=== PATIENT | female | born 1960 | race African-American/Black ===

== ENCOUNTER 2018-10-10 06:36 | Inpatient (IN) | payer SELFPAY ==
[~2018-10-10] VITALS: Ht 157.5 cm; Wt 115.0 kg
[2018-10-10] MEDS ORDERED: cloNIDine HCL 0.1 MG TAB ONE ×2 (07:40→15:12)
[2018-10-10] MEDS ORDERED: cloNIDine HCL 0.1 MG TAB PO ONE ×2 (10:30→15:15)
[2018-10-10 12:19] LABS: Basophils # (auto) 0 uL; Eosinophils # (auto) 0.2 uL; Hemoglobin 13.7 g/dL (12.2-16.2); Lymphocytes # (auto) 2.9 uL; Mean Corpuscular Volume 76.9 fL (80.0-100.0); Monocytes # (auto) 0.4 uL; Neutrophils # (auto) 3.8 uL
[2018-10-10 12:27] LABS: Basophils % (auto) 0.7 % (0.0-2.0); Eosinophils % (auto) 2.3 % (0.0-7.0); Hematocrit 42.6 % (36.0-46.0); Lymphocytes % (auto) 39.1 % (10.0-50.0); Mean Corpuscular Hemoglobin 24.7 pg (28.0-32.0); Mean Corpuscular Hgb Conc. 32.1 g/dL (32.0-36.0); Monocytes % (auto) 5.9 % (0.0-12.0); Nucleated Red Blood Cells % 0.2 %; Platelet Count (auto) 291 10^3/uL (140-450); Red Blood Cells 5.54 10^6/uL (4.0-5.20); Red Cell Distribution Width 16.6 % (11.8-14.3); White Blood Cell 7.4 10^3/uL (4.4-10.8)
[2018-10-10 12:31] LABS: Potassium 4.3 mmol/L (3.5-5.1)
[2018-10-10 12:39] LABS: BUN/Creatinine Ratio 8.2; Bilirubin, Total 0.5 mg/dL (0.2-1.0); Calcium 8.9 mg/dL (8.5-10.1); Total Protein 8.3 g/dL (6.4-8.2)
[2018-10-10] MEDS ORDERED: HYDROcodone-ACET 5/325MG TAB PO PRN (14:15)
[2018-10-10] MEDS ORDERED: TEMAZEPAM 15 MG CAP PO PRN (14:15)
[2018-10-10] MEDS ORDERED: LACTULOSE 20Gm/30ML SOLN PO PRN ×2 (14:15)
[2018-10-10] MEDS ORDERED: LORazepam 0.5 MG TAB PO PRN (14:15)
[2018-10-10] MEDS ORDERED: DEXTROSE (50%) 50ML SYRG IV PRN (14:15)
[2018-10-10] MEDS ORDERED: MORPHINE SULFATE 4 MG/ML SYR/VIAL IV PRN ×2 (14:15)
[2018-10-10] MEDS ORDERED: NITROGLYCERIN 0.4 MG SL TAB SL PRN (14:15)
[2018-10-10] MEDS ORDERED: PROMETHAZINE HCL 25 MG/ML 1ML IV PRN (14:15)
--- NOTE | 2018-10-10 15:37 | NUR ---
MS admit from ER [facility] admitted to tele/MS after SBAR received. Patient oriented to BAYRON MIMS, primary RN, unit, room, bed, and unit policies regarding patient care and visiting hours. Patient weighed by bedscale and encouraged to call if they need something. All questions and concerns addressed, patient verbalized understanding.
[2018-10-10] MEDS ORDERED: ATEN100T PO (15:53)
[2018-10-10] MEDS ORDERED: CLON0.1T PO (15:53)
[2018-10-10] MEDS ORDERED: ZOLP-158 PO (15:53)
[2018-10-10] MEDS ORDERED: BENA40TA7 PO (15:53)
[2018-10-10] MEDS ORDERED: HYDR-4683 PO (15:54)
[2018-10-10] MEDS ORDERED: HCTZ 25 MG TAB PO ONE (16:00)
[2018-10-10] MEDS ORDERED: cloNIDine HCL 0.1 MG TAB PO PRN (16:00)
[2018-10-10] MEDS ORDERED: METOPROLOL TARTRATE 50 MG TAB PO ONE (16:00)
[2018-10-10] MEDS ORDERED: amLODIPine BESYLATE 5 MG TAB PO ONE (16:00)
[2018-10-10] MEDS ORDERED: BENAZEPRIL HCL 10 MG TAB PO ONE (16:00)
[2018-10-10] MEDS: ACETAMINOPHEN 500 MG TAB PO PRN (17:11)
[2018-10-10 17:24] VITALS: BP 160/88
[2018-10-10] MEDS: ACCU-CHEK COMFORT CURVE STRIP VI SCH ×2 (18:01→21:55)
--- NOTE | 2018-10-10 19:10 | NUR ---
Opening Shift Note Assumed care of patient, awake and alert. No S/S of distress/SOB or pain. Instructed on POC and to call for assistance PRN, will continue to monitor for changes Q1hr and PRN.
--- NOTE | 2018-10-10 19:15 | NUR ---
CLOSING NOTE PATIENT RESTING IN BED, NO SIGNS OF DISTRESS NOTED.
[2018-10-10 21:54] VITALS: BP 123/63
[2018-10-10] MEDS: SODIUM CHLOR 0.9% PF (SALINE LOCK) 10ML VIAL/SYR IV SCH (21:54)
[2018-10-10] MEDS: METOPROLOL TARTRATE 50 MG TAB PO SCH (21:54)
[2018-10-10] MEDS ORDERED: ATORVASTATIN 20 MG TAB PO SCH (22:00)
[2018-10-11 05:00] VITALS: BP 140/73
[2018-10-11] MEDS: SODIUM CHLOR 0.9% PF (SALINE LOCK) 10ML VIAL/SYR IV SCH ×2 (05:48→15:35)
[2018-10-11] MEDS: ACCU-CHEK COMFORT CURVE STRIP VI SCH ×2 (06:24→11:30)
--- NOTE | 2018-10-11 07:29 | NUR ---
Opening Shift Note Assumed care of patient, awake and alert. No S/S of distress/SOB or pain. Instructed on POC and to call for assist PRN, will continue to monitor for changes Q1hr and PRN.
[2018-10-11 09:00] VITALS: BP 165/73
[2018-10-11 09:02] LABS: Cholesterol 196 mg/dL (< 200); Triglycerides 105 mg/dL (< 150)
[2018-10-11 09:04] LABS: HDL Cholesterol 43 mg/dL (40-59); LDL Cholesterol 139 mg/dL (< 100)
[2018-10-11 09:49] LABS: Alcohol, Urine < 3.0 mg/dL (0-5); Amphetamine Screen, Urine NEGATIVE (NEGATIVE); Barbiturate Scree,Urine NEGATIVE (NEGATIVE); Benzodiazephine Screen, Urine NEGATIVE (NEGATIVE); Cannabinoid Screen, Urine POSITIVE (NEGATIVE); Cocaine Screen, Urine NEGATIVE (NEGATIVE); Opiate Scree,Urine NEGATIVE (NEGATIVE); Phencyclidine Screen, Urine NEGATIVE (NEGATIVE)
[2018-10-11] MEDS ORDERED: HCTZ 25 MG TAB PO SCH (10:00)
[2018-10-11] MEDS ORDERED: ASPirin 81 mg TAB PO SCH (10:00)
[2018-10-11] MEDS ORDERED: PANTOPRAZOLE 40 MG TAB PO SCH (10:00)
[2018-10-11] MEDS ORDERED: ENOXAPARIN SOD 40 MG/0.4 ML SYRINGE SC SCH (10:00)
[2018-10-11] MEDS ORDERED: BENAZEPRIL HCL 10 MG TAB PO SCH (10:00)
[2018-10-11] MEDS ORDERED: amLODIPine BESYLATE 5 MG TAB PO SCH (10:00)
[2018-10-11] MEDS: METOPROLOL TARTRATE 50 MG TAB PO SCH (10:36)
--- NOTE | 2018-10-11 11:28 | NUR ---
Patient removed her own IV. Patient states " I don't want to have IV, I don't need it". Educated patient that she has to have IV access while she is on the hospital for emergency purposes, but still patient refused to have IV. Will inform hospitalist.
[2018-10-11] MEDS: ACETAMINOPHEN 500 MG TAB PO PRN (11:47)
--- NOTE | 2018-10-11 12:10 | NUR ---
Patient is walking around the unit. Refused to have the tele box on.
--- NOTE | 2018-10-11 12:30 | NUR ---
Patient is back in her room, refused to have the telebox on. Informed [facility].
--- NOTE | 2018-10-11 12:35 | NUR ---
Patient states she want to go downstairs. Patient states she will signs AMA to leave the unit.
[2018-10-11 13:00] VITALS: BP 141/74
--- NOTE | 2018-10-11 15:25 | NUR ---
Discharge instructions given as ordered. Encourage to follow up with PMD as instructed. All questions and concerns addressed. Patient verbalized understanding. Medication reconciliation form completed and copy given to patient. IV removed with catheter intact, pressure dressing applied. Telemetry unit returned to [facility].
--- NOTE | 2018-10-11 16:00 | NUR ---
Patient taken to vehicle via wheelchair with all personal belongings, accompanied by staff and family member. No distress noted at time of departure.
--- NOTE | 2018-10-11 16:39 | NUR ---
Contacted patient re: she left her weigher and charger in the room and we kept it in station. Left a message.
[2018-10-12 09:52] LABS: Folate (Folic Acid) 23.12 ng/mL (5.38-24)
== END 2018-10-11 16:29 | disposition home or self-care (01) | DRG 305 ==
LOC: EDBD 06:36 → ER 06:36 → TELE 14:11 → TELE-EAST 15:42
PROVIDERS: ADMIT Internal Medicine; ATTEND Internal Medicine
DX: I16.0 Hypertensive urgency (principal); Z68.42 Body mass index [BMI] 45.0-49.9, adult; R73.9 Hyperglycemia, unspecified; I70.90 Unspecified atherosclerosis; Z86.73 Personal history of transient ischemic attack (TIA), and cerebral infarction without residual deficits; Z82.49 Family history of ischemic heart disease and other diseases of the circulatory system; Z79.899 Other long term (current) drug therapy; M79.7 Fibromyalgia; I10 Essential (primary) hypertension; G89.29 Other chronic pain; E66.01 Morbid (severe) obesity due to excess calories; G47.00 Insomnia, unspecified
CPT/HCPCS: 36415; 70450; 71045; 71046; 80053; 80061; 80307; 82550; 82607; 82746; 82962; 83036; 84443; 85025; 85652; 93005; 93306; 93886; G0378

== ENCOUNTER 2019-01-15 08:35 | Inpatient (IN) | payer OTHER, MEDICAID ==
[~2019-01-15] VITALS: Ht 157.5 cm; Wt 91.8 kg
[~2019-01-15 08:35] MED LIST: ATEN100T PO; BENA40TA7 PO; CLON0.1T PO; HYDR-4683 PO; ZOLP-158 PO
[2019-01-15] MEDS ORDERED: DILTIAZEM HCL 25 MG/5 ML VIAL IV ONE (09:30)
[2019-01-15] MEDS ORDERED: LORazepam 2MG/ML-1ML VIAL IV ONE (09:45)
[2019-01-15] MEDS ORDERED: AMIODARONE HCL 150 MG in D5W 5% 100 ML IV ONE (09:45)
[2019-01-15 09:52] LABS: Basophils # (auto) 0.1 uL; Basophils % (auto) 0.9 % (0.0-2.0); Eosinophils # (auto) 0.1 uL; Hematocrit 48.2 % (36.0-46.0); Hemoglobin 14.9 g/dL (12.2-16.2); Lymphocytes # (auto) 3.9 uL; Mean Corpuscular Hgb Conc. 30.9 g/dL (32.0-36.0); Mean Corpuscular Volume 77.8 fL (80.0-100.0); Monocytes # (auto) 0.7 uL; Monocytes % (auto) 5.9 % (0.0-12.0); Neutrophils # (auto) 6.3 uL; Neutrophils % (auto) 57.2 % (37.0-80.0); Nucleated Red Blood Cells % 0.6 %; Platelet Count (auto) 283 10^3/uL (140-450); Red Cell Distribution Width 16.8 % (11.8-14.3)
[2019-01-15] MEDS ORDERED: AMIODARONE HCL 900 MG in DEXTROSE 500 ML IV SCH (09:52)
[2019-01-15 09:58] LABS: Albumin 4.1 g/dL (3.4-5.0); Calcium 9.3 mg/dL (8.5-10.1); Potassium 3.9 mmol/L (3.5-5.1); Urine Bacteria NONE SEEN /hpf (None Seen); Urine Blood Negative /uL (Negative); Urine Specific Gravity 1.015 (1.001-1.035); Urine WBC <1 /hpf (0 - 5)
[2019-01-15 10:00] LABS: Bilirubin, Total 0.5 mg/dL (0.2-1.0); Total Protein 9.1 g/dL (6.4-8.2)
[2019-01-15 10:02] LABS: Magnesium 2.5 mg/dL (1.6-2.6)
[2019-01-15] MEDS ORDERED: METOPROLOL TARTRATE 1MG/1ML-5ML VIAL IV ONE ×2 (10:13→10:15)
[2019-01-15] MEDS ORDERED: PROMETHAZINE HCL 25 MG/ML 1ML IV PRN (10:15)
[2019-01-15] MEDS ORDERED: LORazepam 0.5 MG TAB PO PRN (10:15)
[2019-01-15] MEDS ORDERED: ACETAMINOPHEN 500 MG TAB PO PRN (10:15)
[2019-01-15] MEDS ORDERED: METOPROLOL TARTRATE 25 MG TAB PO ONE (10:15)
[2019-01-15] MEDS ORDERED: MORPHINE SULF INJ 2 MG/ML SYRINGE 1ML IV PRN (10:15)
[2019-01-15] MEDS ORDERED: traMADol HCL 50 MG TAB PO PRN (10:15)
[2019-01-15] MEDS ORDERED: LACTULOSE 20Gm/30ML SOLN PO PRN (10:15)
[2019-01-15] MEDS ORDERED: NITROGLYCERIN 0.4 MG SL TAB SL PRN (10:15)
[2019-01-15] MEDS: SODIUM CHLORIDE 0.9% 1,000 ML IV SCH ×2 (10:22→22:28)
[2019-01-15] MEDS: ENOXAPARIN SOD 100 MG/1 ML SYRINGE SC SCH ×2 (10:22→22:00)
[2019-01-15 11:19] LABS: Alcohol, Urine < 3.0 mg/dL (0-5); Amphetamine Screen, Urine NEGATIVE (NEGATIVE); Barbiturate Scree,Urine NEGATIVE (NEGATIVE); Benzodiazephine Screen, Urine NEGATIVE (NEGATIVE); Cannabinoid Screen, Urine POSITIVE (NEGATIVE); Cocaine Screen, Urine NEGATIVE (NEGATIVE); Opiate Scree,Urine NEGATIVE (NEGATIVE); Phencyclidine Screen, Urine NEGATIVE (NEGATIVE)
[2019-01-15] MEDS: ALBUTEROL SULF 2.5 MG/0.5ML(0.5%) NEB SOLN NEB PRN (17:51)
--- NOTE | 2019-01-15 17:51 | NUR ---
Respiratory note: AT BEDSIDE IN ER BED 18 TO ADMINISTER PRN MED NEB TX. PT TOLERATING WELL VIA MASK. BS ARE FINE EXP COURSE WHEEZES T/O. WILL CONTINUE TO MONITOR. POX 98% ON RA.
[2019-01-15] MEDS: METOPROLOL TARTRATE 25 MG TAB PO SCH (22:28)
[2019-01-15] MEDS: TEMAZEPAM 15 MG CAP PO PRN (22:29)
--- NOTE | 2019-01-15 23:20 | NUR ---
Admit to [facility] admitted to [facility] via gurney on surveillance system monitor. Patient transferred to bed, connected to unit monitoring and oxygen, and weighed by bed scale. Patient oriented to Coral encinas RN, unit, room, bed, and unit policies regarding patient care and visiting hours. All questions and concerns addressed, patient verbalized understanding. NOTE: ALERT AND ORIENTED X4. NO SOB OR PAIN NOTED. ROOM AIR. AMIO DRIP AT 1. SR 80S SKIN INTACT.
[2019-01-16] VITALS: BP 129/99
[2019-01-16] MEDS ORDERED: QUET50TA PO (00:08)
[2019-01-16] MEDS ORDERED: AMITR PO (00:08)
[2019-01-16] MEDS ORDERED: METO-169 PO (00:09)
[2019-01-16] MEDS ORDERED: AMLO5TAB13 PO (00:09)
[2019-01-16] MEDS ORDERED: AMIODARONE HCL 900 MG IV ONE (01:44)
[2019-01-16 04:00] VITALS: BP 136/75
--- NOTE | 2019-01-16 05:00 | NUR ---
MORNING HYGIENE CARE FULL LINEN CHANGED PERFORMED. PATIENT REFUSED BATH FOR NOW. SAID SHE WILL DO IT LATER ON IN THE DAY. SUPPLIES LEFT AT BEDSIDE.
[2019-01-16 05:57] LABS: Cholesterol 203 mg/dL (< 200); HDL Cholesterol 43 mg/dL (40-59); LDL Cholesterol 142 mg/dL (< 100); Triglycerides 136 mg/dL (< 150)
--- NOTE | 2019-01-16 07:30 | NUR ---
END OF SHIFT PATIENT IS QUIETLY LAYING IN BED SLEEPING. NO SOB, DISTRESS OR PAIN NOTED. ON AMIO DRIP AT 0.5MG MIN. CURRENTLY SINUS RHYTHM. REPORT GIVEN AND CARE ENDORSED TO MATTHIAS POLLARD.
[2019-01-16 08:00] VITALS: BP 118/95
--- NOTE | 2019-01-16 08:05 | NUR ---
Opening Shift Note Assumed care of patient, awake and alert. Patient A&Ox4. Patient states she was woken up by her palpitations. Heart rate was 150-160 BPM for approximately 1 minute. Patient now A-fib at 90-100 BPM. Patient denies any pain at this time. Patient IV to the left hand 22G painful and swollen. IV D/C catheter intact, pressure dressing placed. IV left forearm 20G running Amiodarone 0.5mg/hr and NS at 75ml/hr, IV patent, clean, dry, and intact. Patient on room air saturation at 98%. Patient ambulatory walked to bathroom independently no assistance needed. Skin intact. No S/S of distress/SOB or pain at this time. Bed locked and in the lowest position, side rails up x2, call light within reach. Instructed on POC and to call for assistance. Will continue to monitor.
--- NOTE | 2019-01-16 08:35 | NUR ---
Patient sitting up in bed eating breakfast independently. Will continue to monitor.
--- NOTE | 2019-01-16 09:00 | NUR ---
Patient complaining that her IV left forearm 20G painful and swollen. IV infiltrated. IV catheter intact upon removal, pressure dressing placed. New IV to be placed.
--- NOTE | 2019-01-16 09:30 | NUR ---
Dr. English at [facility]. Addendum: 01/16/19 at 1655 by Leslie Renner RN Wrong time.
--- NOTE | 2019-01-16 09:35 | NUR ---
New IV right forearm 22G, Patent, clean, dry, and intact. Running Amiodarone and fluids. Will continue to monitor.
[2019-01-16] MEDS ORDERED: ASPirin 81 mg TAB PO SCH (10:00)
--- NOTE | 2019-01-16 10:00 | NUR ---
Medication dosages, usages, and side effects explained to patient. Patient verbalized understanding. Will continue to monitor.
[2019-01-16] MEDS: METOPROLOL TARTRATE 25 MG TAB PO SCH (10:36)
[2019-01-16] MEDS ORDERED: METOPROLOL TARTRATE 25 MG TAB PO ONE ×2 (10:45→11:15)
[2019-01-16] MEDS ORDERED: APIXABAN 5 MG TAB PO ONE (10:45)
[2019-01-16] MEDS ORDERED: ASPirin 81 mg TAB PO ONE (10:45)
--- NOTE | 2019-01-16 10:50 | NUR ---
Dr. English at bedside. New orders for Amiodarone bolus, Metoprolol 50mg BID. will continue to monitor.
[2019-01-16] MEDS ORDERED: AMIODARONE HCL 150 MG in D5W 5% 100 ML IV ONE (11:15)
--- NOTE | 2019-01-16 11:39 | NUR ---
Patient sitting up watching TV. Will continue to monitor.
[2019-01-16 11:44] VITALS: BP 126/105
--- NOTE | 2019-01-16 12:36 | NUR ---
Respiratory note: ROUTINE PRN TX CHECK. HR 82, RR 18, POX 94% ON RA, BREATH SOUNDS ARE CLEAR. NO SOB OR DISTRESS NOTED. PT WAS NOTIFY TO HAVE RT PAGE FOR MN TX.
--- NOTE | 2019-01-16 13:30 | NUR ---
Patient sitting up in bed in bed eating lunch. Will continue to monitor.
--- NOTE | 2019-01-16 15:30 | NUR ---
Dr. Vanessa at bedside. New orders: D/C Metoprolol, Amiodarone PO 200mg BID, D/C Amiodarone drip 6 hours after first PO dose of Amiodarone, and Cardizem ER 240mg daily.
[2019-01-16 15:48] VITALS: BP 134/81
--- NOTE | 2019-01-16 17:15 | NUR ---
Dr. Carrizales at bedside.
--- NOTE | 2019-01-16 17:30 | NUR ---
Respiratory note: NO SVN INDICATED AT THIS TIME. PT IN NO DISTRESS. CLEAR BILATERAL BREATH SOUNDS. PT AWARE TO NOTIFY NURSE IF SOB OCCURS.
[2019-01-16] MEDS ORDERED: AMIODARONE HCL 200 MG TAB PO SCH (18:25)
--- NOTE | 2019-01-16 18:30 | NUR ---
End of shift note: Patient resting at this time. Patient IV right forearm 22G running Amiodarone 0.5mg/hr and NS at 75ml/hr, IV patent, clean, dry, and intact. Patient on room air saturation at 98%. No S/S of distress/SOB or pain at this time. Bed locked and in the lowest position, side rails up x2, call light within reach. Instructed on POC and to call for assistance. Will continue to monitor. Report to be given to hourly shift RN.
--- NOTE | 2019-01-16 19:15 | NUR ---
OPENING SHIFT RECEIVED REPORT FROM DAY SHIFT RN. ASSUMED CARE OF PATIENT. PATIENT IN BED WATCHING TV WITH NO SIGNS OR SYMPTOMS OF SOB, PAIN OR DISTRESS. CURRENTLY ON ROOM AIR, 02 SAT - 97%. UPDATED PATIENT ON PLAN OF CARE. BED IN LOWEST POSITION, SIDE RAILS UP X2, CALL LIGHT WITHIN REACH. WILL CONTINUE TO MONITOR.
[2019-01-16 19:50] VITALS: BP 146/83
--- NOTE | 2019-01-16 21:15 | NUR ---
PM CARE PATIENT PERFORMED NIGHT CARE, CLEANSED BODY WITH CHG WIPES AND USED WASH CLOTHS TO THE FACE. FULL LINEN CHANGE AND GOWN CHANGED. PATIENT TOLERATED WELL. REPOSITIONED FOR COMFORT. PATIENT CURRENTLY ON ROOM AIR,02 SAT -98%. BED IN LOWEST POSITION, SIDE RAILS UP X2, CALL LIGHT WITHIN REACH. WILL CONTINUE TO MONITOR.
[2019-01-16] MEDS: TEMAZEPAM 15 MG CAP PO PRN (21:38)
[2019-01-16] MEDS ORDERED: METOPROLOL TARTRATE 50 MG TAB PO SCH (22:00)
[2019-01-16] MEDS ORDERED: APIXABAN 5 MG TAB PO SCH (22:00)
--- NOTE | 2019-01-16 22:15 | NUR ---
PATIENT PLACED ON BREATHING TREATMENT, RT AT BEDSIDE. PATIENT TOLERATING WELL. WILL CONTINUE TO MONITOR.
[2019-01-16] MEDS: ALBUTEROL SULF 2.5 MG/0.5ML(0.5%) NEB SOLN NEB PRN (22:20)
[2019-01-17] VITALS: BP 115/62
--- NOTE | 2019-01-17 00:45 | NUR ---
DC IV RIGHT FOREARM IV INFILTRATED. IV REMOVED, CATHETER INTACT.
--- NOTE | 2019-01-17 00:50 | NUR ---
IV INSERTION INSERTED RIGHT FOREARM IV 22G - INTACT AND FLUSHES WELL.
--- NOTE | 2019-01-17 01:15 | NUR ---
NOTICED PATIENT IS IRRITABLE DUE TO BEING WOKEN UP FOR IV INSERTION. PATIENT STATES, " I AM UNABLE TO GO BACK TO SLEEP, I WANT TO GO HOME AND SLEEP IN MY OWN BED. IM TIRED OF BEING HERE."
--- NOTE | 2019-01-17 01:30 | NUR ---
PAGEGonzalez HOSPITALIST IN REGARDS TO PATIENT REQUESTING TO LEAVE AMA. RECOMMENDED BENADRYL FOR SLEEP. PATIENT REFUSED AND INSISTED ON GOING HOME. INFORMED PATIENT ABOUT CURRENT DIAGNOSIS - AFIB.
--- NOTE | 2019-01-17 01:50 | NUR ---
REMOVED RIGHT FOREARM IV, CATHETER INTACT. PATIENT TOLERATED WELL.
--- NOTE | 2019-01-17 01:55 | NUR ---
PATIENT SIGNED AMA PAPERS. PATIENT ARRANGED A TAXI FOR PICKUP. PATIENT PACKED ALL BELONGINGS AT BEDSIDE. PAGED SECURITY FOR ESCORT.
--- NOTE | 2019-01-17 02:10 | NUR ---
PATIENT LEFT AMA AND WAS ESCORTED BY SECURITY TO THE ER ENTRANCE.
[2019-01-17] MEDS ORDERED: DILTIAZEM HCL 120MG ER CAP PO SCH (10:00)
== END 2019-01-17 02:09 | disposition left against medical advice (07) | DRG 309 ==
LOC: ER 08:35 → TELE 10:07 → DOU IN ICU 23:18
PROVIDERS: ADMIT Internal Medicine; ATTEND Internal Medicine
DX: I48.91 Unspecified atrial fibrillation (principal); D68.69 Other thrombophilia; I11.0 Hypertensive heart disease with heart failure; M79.7 Fibromyalgia; I25.10 Atherosclerotic heart disease of native coronary artery without angina pectoris; E66.01 Morbid (severe) obesity due to excess calories; F12.90 Cannabis use, unspecified, uncomplicated; F17.210 Nicotine dependence, cigarettes, uncomplicated; I50.9 Heart failure, unspecified; G89.29 Other chronic pain; M54.5 Low back pain; I48.92 Unspecified atrial flutter; J44.9 Chronic obstructive pulmonary disease, unspecified; Z68.37 Body mass index [BMI] 37.0-37.9, adult; Z86.73 Personal history of transient ischemic attack (TIA), and cerebral infarction without residual deficits; Z82.5 Family history of asthma and other chronic lower respiratory diseases; Z82.49 Family history of ischemic heart disease and other diseases of the circulatory system; Z88.5 Allergy status to narcotic agent; Z90.49 Acquired absence of other specified parts of digestive tract; Z53.21 Procedure and treatment not carried out due to patient leaving prior to being seen by health care provider
CPT/HCPCS: 36415; 71045; 80053; 80061; 80307; 81001; 83735; 83880; 84443; 84484; 85025; 85379; 85652; 86141; 93005; 93306; 94640; 94761; 96361; 96365; 96367; 96375; 99291; G0378; J7060

== ENCOUNTER 2019-09-16 15:05 | Emergency (ER) | payer OTHER, MEDICAID ==
[~2019-09-16] VITALS: Ht 162.6 cm; Wt 113.4 kg
[~2019-09-16 15:05] MED LIST changes: +AMITR PO; +AMLO5TAB15 PO; -ATEN100T PO; -BENA40TA7 PO; -CLON0.1T PO; -HYDR-4683 PO; +HYDR-4833 PO; +METO-169 PO; +QUET50TA PO
[2019-09-16 16:57] LABS: Basophils # (auto) 0.1 uL; Eosinophils # (auto) 0.2 uL; Hematocrit 38.4 % (36.0-46.0); Mean Corpuscular Hemoglobin 24.4 pg (28.0-32.0); Monocytes # (auto) 0.4 uL
[2019-09-16 16:59] LABS: Basophils % (auto) 1.3 % (0.0-2.0); Eosinophils % (auto) 2.4 % (0.0-7.0); Hemoglobin 12.3 g/dL (12.2-16.2); Lymphocytes # (auto) 2.6 uL; Lymphocytes % (auto) 37.7 % (10.0-50.0); Mean Corpuscular Hgb Conc. 32.1 g/dL (32.0-36.0); Mean Corpuscular Volume 76.2 fL (80.0-100.0); Monocytes % (auto) 5.2 % (0.0-12.0); Neutrophils # (auto) 3.7 uL; Neutrophils % (auto) 53.4 % (37.0-80.0); Nucleated Red Blood Cells % 0.2 %; Platelet Count (auto) 321 10^3/uL (140-450); Red Blood Cells 5.04 10^6/uL (4.0-5.20); Red Cell Distribution Width 16.8 % (11.8-14.3); White Blood Cell 6.9 10^3/uL (4.4-10.8)
[2019-09-16 17:16] LABS: Acetaminophen < 2.0 ug/mL (10-30); Salicylate < 1.7 mg/dL (2.8-20.0)
[2019-09-16 17:17] LABS: Albumin 3.8 g/dL (3.4-5.0); BUN/Creatinine Ratio 13.6; Calcium 8.9 mg/dL (8.5-10.1); Potassium 3.7 mmol/L (3.5-5.1)
[2019-09-16 17:19] LABS: Bilirubin, Total 0.3 mg/dL (0.2-1.0); Total Protein 8.3 g/dL (6.4-8.2)
[2019-09-16] MEDS ORDERED: OLANZapine 5 MG TAB PO ONE (21:45)
[2019-09-16] MEDS ORDERED: IBUPROFEN 800 MG TAB PO ONE (23:00)
[2019-09-17 12:35] VITALS: BP 133/74
== END 2019-09-17 13:03 | disposition short-term general hospital (02) ==
LOC: ER 15:05 → EDBD 15:05 → ER 09-17 13:03
DX: F31.9 Bipolar disorder, unspecified (principal); F41.9 Anxiety disorder, unspecified; F10.10 Alcohol abuse, uncomplicated; F14.10 Cocaine abuse, uncomplicated; F12.10 Cannabis abuse, uncomplicated; F17.210 Nicotine dependence, cigarettes, uncomplicated; I11.0 Hypertensive heart disease with heart failure; I50.9 Heart failure, unspecified; J44.9 Chronic obstructive pulmonary disease, unspecified; R45.851 Suicidal ideations; Z90.49 Acquired absence of other specified parts of digestive tract; Z86.73 Personal history of transient ischemic attack (TIA), and cerebral infarction without residual deficits
CPT/HCPCS: 36415; 80053; 80320; 80329; 85025

== ENCOUNTER 2020-11-10 06:28 | Emergency (ER) | payer OTHER, MEDICAID ==
[~2020-11-10] VITALS: Ht 157.5 cm; Wt 93.0 kg
[~2020-11-10 06:28] MED LIST changes: +AMLO-489 PO; -AMLO5TAB15 PO; -ZOLP-158 PO; +ZOLP5TAB PO
[2020-11-10 07:25] VITALS: BP 124/76
== END 2020-11-10 08:17 | disposition home or self-care (01) ==
LOC: ER 06:28
DX: R51.9 Headache, unspecified (principal); F41.9 Anxiety disorder, unspecified; I11.0 Hypertensive heart disease with heart failure; I50.9 Heart failure, unspecified; J44.9 Chronic obstructive pulmonary disease, unspecified; F17.210 Nicotine dependence, cigarettes, uncomplicated; Z90.49 Acquired absence of other specified parts of digestive tract; Z86.73 Personal history of transient ischemic attack (TIA), and cerebral infarction without residual deficits; Z88.6 Allergy status to analgesic agent
CPT/HCPCS: 70450